=== PATIENT | female | born 1965 | race Caucasian/White ===

== ENCOUNTER 2020-03-30 07:39 | Outpatient (CLI) | payer OTHER | END 2020-03-30 07:48 | disposition home or self-care (01) | LOC: NUCLEAR 07:39 | PROVIDERS: ATTEND Internal Medicine Gastroenterology | DX: R10.13 Epigastric pain (principal); R11.0 Nausea; K31.84 Gastroparesis | CPT/HCPCS: 78264; A9541 ==

== ENCOUNTER 2020-05-27 17:27 | Emergency (ER) | payer OTHER ==
[~2020-05-27] VITALS: Ht 154.9 cm; Wt 67.1 kg
[2020-05-27] MEDS ORDERED: VOLTAREN100 GM (17:37)
[2020-05-27] MEDS ORDERED: PEPCID AC10 MG (17:38)
[2020-05-27] MEDS ORDERED: PROTONIX20 MG (17:38)
[2020-05-27] MEDS ORDERED: TOPROL XL50 M1 (17:38)
[2020-05-27] MEDS ORDERED: HORIZANT300 MG (17:38)
[2020-05-27] MEDS ORDERED: WELLBUTRIN XL300 MG (17:38)
[2020-05-27] MEDS ORDERED: CLONAZEPAM0.125 MG (17:39)
== END 2020-05-28 00:31 | disposition home or self-care (01) ==
LOC: ER 17:27
DX: R10.32 Left lower quadrant pain (principal); Z20.828 Contact with and (suspected) exposure to other viral communicable diseases

== ENCOUNTER 2021-08-01 06:00 | Day surgery (SDC) | payer OTHER ==
[~2021-08-01 06:00] MED LIST: CLONAZEPAM0.125 MG; HORIZANT300 MG; PEPCID AC10 MG; PROTONIX20 MG; TOPROL XL50 M1; VOLTAREN100 GM; WELLBUTRIN XL300 MG
== END 2021-08-01 11:10 | disposition home or self-care (01) ==
LOC: AMB-ENDOS 06:00 → CIR.AMB 15:30
PROVIDERS: ATTEND Internal Medicine Gastroenterology
DX: K29.00 Acute gastritis without bleeding (principal); K63.5 Polyp of colon; I10 Essential (primary) hypertension; J45.909 Unspecified asthma, uncomplicated; F41.9 Anxiety disorder, unspecified; M19.90 Unspecified osteoarthritis, unspecified site; K21.9 Gastro-esophageal reflux disease without esophagitis; K44.9 Diaphragmatic hernia without obstruction or gangrene; K57.30 Diverticulosis of large intestine without perforation or abscess without bleeding